=== PATIENT | female | born 1990 | race Native Hawaiian/Other Pacific Islander ===

== ENCOUNTER 2017-12-21 18:37 | Emergency (ER) | payer OTHER ==
--- NOTE | 2017-12-21 19:17 | C.PDOC ---
History Of Present Illness 27 yr old female presents to the ER with complaints of vaginal bleeding since morning but no clots. Patient reports she is and approximately 7 weeks . Patient denies fever, nausea, vomiting, abdominal pain, dysuria, weakness or numbness. Time Seen by Provider: 12/21/17 19:17 Chief Complaint (Nursing): Female Genitourinary History Per: Patient History/Exam Limitations: no limitations Onset/Duration Of Symptoms: Sudden Onset (since morning) Current Symptoms Are (Timing): Still Present Severity: Mild Pain Scale Rating Of: 2 Quality Of Discomfort: Cramping Associated Symptoms: denies: Fever, Chills Alleviating Factors: None Recent travel outside of the [place]: No Additional History Per: Family Abnormal Vaginal Bleeding: Yes Past Medical History Reviewed: Historical Data, Nursing Documentation, Vital Signs Vital Signs: Last Vital Signs Temp 98.5 F 12/21/17 20:03 Pulse 61 12/21/17 20:03 Resp 18 12/21/17 20:03 BP 133/87 12/21/17 20:03 Pulse Ox 100 12/21/17 20:03 Family History: States: No Known Family Hx - Social History Hx Alcohol Use: No Hx Substance Use: No - Immunization History Hx Tetanus Toxoid Vaccination: No Hx Influenza Vaccination: No Hx Pneumococcal Vaccination: No Review Of Systems Except As Marked, All Systems Reviewed And Found Negative. Constitutional: Negative for: Fever, Chills Respiratory: Negative for: Shortness of Breath Gastrointestinal: Negative for: Nausea, Vomiting, Abdominal Pain Genitourinary: Positive for: Vaginal Bleeding. Negative for: Dysuria Musculoskeletal: Negative for: Back Pain Skin: Negative for: Rash Neurological: Negative for: Weakness, Numbness Psych: Negative for: Anxiety Physical Exam - Physical Exam Appears: Non-toxic, No Acute Distress Skin: Warm, Dry Eye(s): bilateral: Normal Inspection Oral Mucosa: Moist Cardiovascular: Rhythm Regular, No Murmur Respiratory: No Rales, No Rhonchi, No Stridor, No Wheezing Gastrointestinal/Abdominal: Bowel Sounds (good), Soft, No Tenderness, No Guarding, No Rebound Back: No CVA Tenderness Extremity: Normal ROM, No Swelling Neurological/Psych: Oriented x3, Normal Speech Gait: Steady ED Course And Treatment - Laboratory Results Result Diagrams: 12/21/17 19:39 12/21/17 19:39 O2 Sat by Pulse Oximetry: 100 (RA) Pulse Ox Interpretation: Normal Medical Decision Making Medical Decision Making: PLAN: * Labs * BETA Quant * Urinalysis * Sodium Chloride IV Disposition Counseled Patient/Family Regarding: Studies Performed, Diagnosis, Need For Followup - Disposition Referrals: Carl Ku MD [Staff Provider] - Disposition: HOME/ ROUTINE Disposition Time: 19:17 Condition: FAIR Instructions: Threatened Miscarriage (DC), Bleeding With (DC) Forms: [employer] (Persian) - Clinical Impression Clinical Impression: Threatened - Scribe Statement The provider has reviewed the documentation as recorded by the Scribe Olena Perez Provider Attestation: All medical record entries made by the Scribe were at my direction and personally dictated by me. I have reviewed the chart and agree that the record accurately reflects my personal performance of the history, physical exam, medical decision making, and the department course for this patient. I have also personally directed, reviewed, and agree with the discharge instructions and disposition.
[2017-12-21] MEDS ORDERED: Sodium Chloride 0.9% 1,000 ML IV ONE (19:18)
[2017-12-21 19:49] LABS: BASO # 0.1 K/uL (0.0-0.2); BASO % 0.7 % (0.0-2.0); EOS # 0.2 K/uL (0.0-0.7); EOS % 1.4 % (0.0-4.0); HEMOGLOBIN 14.3 g/dL (11.0-16.0); LYMPH # 3.1 K/uL (1.0-4.3); LYMPH % 21.9 % (20.0-40.0); MEAN CELL VOLUME 94.1 fL (81.0-99.0); MEAN CORPUSCULAR HEMOGLOBIN 32.3 pg (27.0-31.0); MEAN CORPUSCULAR HGB CONC 34.3 g/dL (33.0-37.0); MEAN PLATELET VOLUME 7.3 fL (7.2-11.7); MONO # 1.1 K/uL (0.0-0.8); MONO % 7.8 % (0.0-10.0); NEUT # 9.7 K/uL (1.8-7.0); NEUT % 68.2 % (50.0-75.0); NRBC % 0.1 % (0.0-2.0); RBC 4.43 Mil/uL (3.80-5.20); RED CELL DISTRIBUTION WIDTH 12.9 % (11.5-14.5); WHITE BLOOD COUNT 14.3 K/uL (4.8-10.8)
[2017-12-21 19:54] LABS: SQUAMOUS EPITHIAL 9 /hpf (0-5); URINE BACTERIA RARE (<OCC); URINE BILIRUBIN NEGATIVE (NEGATIVE); URINE BLOOD 3+ (NEGATIVE); URINE CLARITY Hazy (Clear); URINE COLOR Yellow (YELLOW); URINE GLUCOSE (UA) NORMAL (Normal); URINE LEUKOCYTE ESTERASE NEG Leu/uL (Negative); URINE NITRATE NEGATIVE (NEGATIVE); URINE PROTEIN NEGATIVE (NEGATIVE); URINE UROBILINOGEN NORMAL mg/dL (0.2-1.0)
[2017-12-21 19:59] LABS: ALB/GLOB RATIO 1.1 (1.0-2.1); ALBUMIN 4.6 g/dL (3.5-5.0); ALT/SGPT 27 U/L (9-52); AST/SGOT 21 U/L (14-36); BLOOD UREA NITROGEN 8 mg/dL (7-17); CALCIUM 9.9 mg/dl (8.6-10.4); GFR AFRICAN-AMERICAN > 60; GFR NON-AFRICAN AMERICAN > 60
[2017-12-21 20:02] LABS: INR 1.1; PROTHROMBIN TIME 12.1 SECONDS (9.7-12.2)
[2017-12-21 20:05] VITALS: RESP 18
--- NOTE | 2017-12-21 21:51 | US ---
EXAM: US Pelvis Complete, Transabdominal US Duplex Arterial/Venous of the Pelvis, Complete CLINICAL HISTORY: 27 years old, female; Signs and symptoms; Lmp or gestational age (in weeks): ; Antepartum complications; Bleeding; ; Additional info: Vag bleed TECHNIQUE: Real-time transabdominal pelvic ultrasound (complete) with image documentation. Real-time duplex ultrasound scan of the arterial and venous flow of the pelvis with color Doppler flow and spectral waveform analysis. COMPARISON: No relevant prior studies available. FINDINGS: Uterus/cervix: The uterus measures 9.1 x 5.4 x 6.4 cm. Cervix measures 3.2 cm in length. No myometrial mass. A gestational sac measures 2.5 x 2.1 x 3.7 cm for a mean sac diameter of 2.77 cm for menstrual age of 7 weeks and 4 days. There is a yolk sac present with a crown-rump length measurement of 0.98 cm for menstrual age of 7 weeks and 0 days. Cardiac activity is noted a rate of 146 beats per minute. Right ovary: The right ovary measures 3.6 x 2.5 x 3.4 cm. Blood flow is seen in the right ovary on color Doppler examination. Left ovary: The left ovary measures 3.5 x 2.4 x 2.7 cm. blood flow seen in the left ovary on color Doppler examination. No torsion. Free fluid: No free fluid. Bladder: Unremarkable as visualized. Wall is normal thickness for degree of distention. IMPRESSION: 1. Single live intrauterine with an estimated menstrual age of 7 weeks and 2 days plus or -4 days. Expected date of confinement 08/07/2018.
[2017-12-21 22:06] VITALS: BP 132/86; PULSE 56; TEMP 98.6; O2SAT 97
== END 2017-12-21 22:09 | disposition home or self-care (01) ==
LOC: C.ER 18:37
DX: O20.0 Threatened abortion (principal); Z3A.01 Less than 8 weeks gestation of pregnancy
CPT/HCPCS: 76801; 80053; 81001; 84702; 85025; 85610; 85730; 86850; 86900; 96360; 99285; J7040